=== PATIENT | female | born 1945 | race Caucasian/White ===

== ENCOUNTER 2017-06-23 11:23 | Day surgery (SDC) | payer OTHER ==
[~2017-06-23] VITALS: Ht 162.6 cm; Wt 48.0 kg
[~2017-06-23 11:23] MED LIST: ACCOLATE20 MG PO; ADVAIR 250/501 DISK; ALLEGRA ALLERG180 MG PO; ALLEGRA-D 241 TABLET PO; ASPIRIN81 M2 PO; BENTYL10 MG PO; BENTYL20 MG PO; CARDIZEM60 MG PO; CELEXA20 MG PO; COZAAR50 MG PO; CRESTOR20 MG PO; CRESTOR5 MG PO; DILAUDID2 MG PO; EPIPEN ADU0.3 MG/0.3 IM; FLONASE16 G1 BOTH NARES; FLORASTOR250 MG PO; HYDROCHLOROTH12.5 M3 PO; LOTRISONE15 GM TP; MIRALAX255 GM PO; PEPCID AC20 MG PO; PEPCID COMPLET1 EACH PO; PEPCID20 MG PO; PROBIOTIC; PROBIOTIC1 EAC1 PO; PROMETHAZINE HC25 M1 PO; PROPRANOLOL HCL40 MG PO; PROTONIX40 MG PO; PROVENTIL,2.5 MG/3 M IH; PULMICORT FLE180 MCG IH; RESTASIS MULTI5.5 ML BOTH EYES; VALIUM5 MG PO; VENTOLIN HFA18 GM IH; VENTOLIN17 GM IH; VITAMIN B-125000 MC1 PO; VITAMIN D400 UNIT PO; XOPENEX1.25 MG/3 IH; ZOFRAN8 MG PO; Zithromax PO; [UNRECOGNIZED DRUG - OTHER]
[2017-06-23] MEDS ORDERED: REPATHA SY140 MG/1 M SC (12:33)
== END 2017-06-23 19:00 | disposition home or self-care (01) ==
LOC: CATH 11:23
PROC: 4A033BC Measurement of Arterial Pressure, Coronary, Percutaneous Approach (ICD-10-PCS; principal; 2017-06-23)
PROC: 4A023N7 Measurement of Cardiac Sampling and Pressure, Left Heart, Percutaneous Approach (ICD-10-PCS; principal; 2017-06-23)
PROC: B2111ZZ Fluoroscopy of Multiple Coronary Arteries using Low Osmolar Contrast (ICD-10-PCS; principal; 2017-06-23)
PROC: B2151ZZ Fluoroscopy of Left Heart using Low Osmolar Contrast (ICD-10-PCS; principal; 2017-06-23)
DX: R07.9 Chest pain, unspecified (principal); I25.10 Atherosclerotic heart disease of native coronary artery without angina pectoris; I34.0 Nonrheumatic mitral (valve) insufficiency; K29.70 Gastritis, unspecified, without bleeding; Z82.49 Family history of ischemic heart disease and other diseases of the circulatory system; E78.5 Hyperlipidemia, unspecified; I49.1 Atrial premature depolarization; I10 Essential (primary) hypertension; J45.909 Unspecified asthma, uncomplicated; F41.9 Anxiety disorder, unspecified; F32.9 Major depressive disorder, single episode, unspecified; Z88.8 Allergy status to other drugs, medicaments and biological substances
CPT/HCPCS: 85347; C1760; C1769; C1887; C1894; J0153; J0583; J0690; J1644; J2250; J3010; J7050

== ENCOUNTER 2017-09-10 12:49 | Emergency (ER) | payer OTHER ==
[~2017-09-10] VITALS: Ht 162.6 cm; Wt 53.9 kg
[~2017-09-10 12:49] MED LIST changes: +REPATHA SY140 MG/1 M SC
[2017-09-10 14:31] LABS: EOSINOPHIL (%) 0.2 % (0-5); HEMATOCRIT 38.7 % (36.0-46.0); IMMATURE GRANULOCYTE (%) 0.4 % (0.0-0.7); INSTRUMENT ABS NEUTROPHIL CT 3.7 K/uL; LYMPHOCYTE COUNT 1.2 K/uL (1.0-2.8); MCH 30.1 PG (29.0-34.0); MCHC 32.3 G/DL (30.0-36.0); MCV 93.3 FL (83-99); MEAN PLAT.VOLUME 10.8 uM^3 (9.5-12.4); MONOCYTE (%) 8.3 % (3-12); MONOCYTE COUNT 0.4 K/uL (0-0.8); NEUTROPHIL COUNT 3.7 K/uL (1.8-6.4); PLATELET COUNT 233 K/uL (156-360); RBC DIS.WIDTH-SD 41.7 % (39-53); RED BLOOD COUNT 4.15 M/uL (3.80-5.20); WHITE BLOOD COUNT 5.3 K/uL (4.1-10.2)
[2017-09-10 14:39] LABS: CHLORIDE 110 mEq/L (99-109); POTASSIUM 4.8 mEq/L (3.7-5.4); SODIUM 141 mEq/L (136-147)
[2017-09-10 14:42] LABS: GLUCOSE 101 mg/dL (70-99)
[2017-09-10 14:43] LABS: ANION GAP 5 MEQ/L (2-14); TOTAL BILIRUBIN 0.4 mg/dL (0.0-1.0)
[2017-09-10 14:45] LABS: ALKALINE PHOSPHATASE 71 IU/L (3-129); GFR ESTIMATE (CALCULATED) > 59 mL/min/
[2017-09-10 14:46] LABS: UREA NITROGEN (BUN) 11 mg/dL (9-23)
[2017-09-10 14:49] LABS: LIPASE 33 U/L (1.0-51.0)
[2017-09-10 16:10] LABS: ADD MIUA? NO; BILIRUBIN NEGATIVE; BLOOD NEGATIVE; COLOR COLORLESS ((YELLOW)); GLUCOSE (STRIP) NEGATIVE; KETONES NEGATIVE; LEUKOCYTES NEGATIVE; NITRITE NEGATIVE; PROTEIN (STRIP) NEGATIVE; UCUL ADDED? NO; UROBILINOGEN 0.2 MG/DL (0.2-1.0)
[2017-09-10 17:24] VITALS: BP 127/67
== END 2017-09-10 17:26 | disposition home or self-care (01) ==
LOC: EME 12:49
PROVIDERS: Emergency Medicine
DX: K58.0 Irritable bowel syndrome with diarrhea (principal); R10.31 Right lower quadrant pain; M54.9 Dorsalgia, unspecified; I25.10 Atherosclerotic heart disease of native coronary artery without angina pectoris; Z95.5 Presence of coronary angioplasty implant and graft; E78.5 Hyperlipidemia, unspecified; Z90.49 Acquired absence of other specified parts of digestive tract; Z90.710 Acquired absence of both cervix and uterus; Z90.79 Acquired absence of other genital organ(s); Z90.722 Acquired absence of ovaries, bilateral; Z79.82 Long term (current) use of aspirin; Z88.8 Allergy status to other drugs, medicaments and biological substances
CPT/HCPCS: 74177; 80053; 81003; 83690; 85025; 99281; 99284; J2405; J7030

== ENCOUNTER 2018-06-04 21:12 | Emergency (ER) | payer OTHER ==
[~2018-06-04] VITALS: Ht 162.6 cm; Wt 53.8 kg
[2018-06-04 21:33] LABS: HEMATOCRIT 36.4 % (36.0-46.0); HEMOGLOBIN 12.2 G/DL (11.9-15.5); MCH 29.9 PG (29.0-34.0); MCHC 33.5 G/DL (30.0-36.0); MCV 89.2 FL (83-99); PLATELET COUNT 295 K/uL (156-360); RBC DIS.WIDTH-CV 12.2 % (11.8-14.6); RBC DIS.WIDTH-SD 39.8 % (39-53); RED BLOOD COUNT 4.08 M/uL (3.80-5.20); WHITE BLOOD COUNT 5.2 K/uL (4.1-10.2)
[2018-06-04 21:38] LABS: APPEARANCE CLEAR ((CLEAR)); BILIRUBIN NEGATIVE; BLOOD NEGATIVE; COLOR STRAW ((YELLOW)); GLUCOSE (STRIP) NEGATIVE; KETONES NEGATIVE; LEUKOCYTES TRACE; NITRITE NEGATIVE; PROTEIN (STRIP) NEGATIVE; SPECIFIC GRAVITY 1.009 (1.000-1.030); UROBILINOGEN 0.2 MG/DL (0.2-1.0)
[2018-06-04 21:41] LABS: ALBUMIN 4.3 g/dL (3.2-4.8)
[2018-06-04 21:42] LABS: CHLORIDE 102 mEq/L (99-109); POTASSIUM 4.2 mEq/L (3.7-5.4); SODIUM 136 mEq/L (136-147)
[2018-06-04 21:44] LABS: GLUCOSE 104 mg/dL (70-99); TOTAL PROTEIN 7.4 g/dL (6.4-8.3)
[2018-06-04 21:46] LABS: TOTAL BILIRUBIN 0.5 mg/dL (0.0-1.0)
[2018-06-04 21:46] LABS: BACTERIA NONE SEEN /HPF; EPITHELIAL CELLS RARE /HPF; HYALINE CASTS 0-5 /LPF; MUCUS TRACE /LPF; RED BLOOD CELLS 0-5 /HPF (0-5); UCUL ADDED? YES
[2018-06-04 21:47] LABS: ALKALINE PHOSPHATASE 68 IU/L (3-129)
[2018-06-04 21:48] LABS: GFR ESTIMATE (CALCULATED) 58 mL/min/
[2018-06-04 21:49] LABS: AST (GOT) 19 IU/L (2-34); UREA NITROGEN (BUN) 10 mg/dL (9-23)
[2018-06-04 21:51] LABS: ALT (GPT) 11 IU/L (3-49); LIPASE 39 U/L (1.0-51.0)
[2018-06-05 00:45] VITALS: BP 124/68
== END 2018-06-05 00:45 | disposition home or self-care (01) ==
LOC: EME 21:12
DX: N39.0 Urinary tract infection, site not specified (principal); E78.5 Hyperlipidemia, unspecified; K58.9 Irritable bowel syndrome, unspecified; E73.9 Lactose intolerance, unspecified; F41.9 Anxiety disorder, unspecified; Z79.82 Long term (current) use of aspirin; Z90.49 Acquired absence of other specified parts of digestive tract; Z90.710 Acquired absence of both cervix and uterus; Z88.0 Allergy status to penicillin; Z88.1 Allergy status to other antibiotic agents; Z88.8 Allergy status to other drugs, medicaments and biological substances; Z88.2 Allergy status to sulfonamides; Z88.5 Allergy status to narcotic agent
CPT/HCPCS: 74177; 80053; 81003; 83690; 85027; 87086; 99281; 99285; J3010; J7030